=== PATIENT | female | born 1980 | race Caucasian/White ===

== ENCOUNTER 2019-02-19 09:44 | Emergency (ER) | payer SELFPAY ==
[2019-02-19 09:51] VITALS: BP 119/55
[2019-02-19] MEDS ORDERED: KETOROLAC TROMETHAMINE INJ/PF 30 MG/1 ML SDV IV ONE (10:09)
[2019-02-19] MEDS ORDERED: NORMAL SALINE 1000 ML 1,000 ML IV ONE (10:09)
[2019-02-19] MEDS ORDERED: ONDANSETRON HCL INJ/PF 4 MG/2 ML SDV IV ONE (10:09)
--- NOTE | 2019-02-19 10:10 | ER Document Report ---
ED Medical Screen (RME) - General Chief Complaint: Flank Pain Stated Complaint: FLANK FUNG Time Seen by Provider: 02/19/19 10:06 Primary Care Provider: SUSY HARO [Primary Care Provider] - Follow up as needed Mode of Arrival: Ambulatory Information source: Patient Notes: Patient is an otherwise healthy 39-year-old female presenting to the emergency department chief complaint of right-sided flank pain that has now radiated in her right groin. Patient also reports mild dysuria, chills and nausea and vomiting. Patient denies any history of kidney stones. Exam: Mild tenderness to palpation to the right flank area. I have greeted and performed a rapid initial assessment of this patient. A comprehensive ED assessment and evaluation of the patient, analysis of test results and completion of the medical decision making process will be conducted by additional ED providers. I have specifically instructed the patient or family members with the patient to immediately return to any nursing staff should anything change in the patient's condition or with their chief complaint. This medical record was dictated with voice recognizing software. There may be grammatical, syntax errors that are unintended. - Related Data Allergies/Adverse Reactions: No Known Allergies Allergy (Verified 09/04/12 09:11) Past Medical History Pulmonary Medical History: Denies: Hx Asthma, Hx Pneumonia - Immunizations Hx Diphtheria, Pertussis, Tetanus Vaccination: Yes - 04/29/12 Physical Exam - Vital signs Vitals: Temp Pulse Resp BP Pulse Ox 98.3 F 88 20 119/55 L 100 02/19/19 09:50 02/19/19 09:50 02/19/19 09:50 02/19/19 09:50 02/19/19 09:50 Course - Vital Signs Vital signs: Temp Pulse Resp BP Pulse Ox 98.3 F 88 20 119/55 L 100 02/19/19 09:50 02/19/19 09:50 02/19/19 09:50 02/19/19 09:50 02/19/19 09:50 Doctor's Discharge - Discharge Referrals: SUSY HARO [Primary Care Provider] - Follow up as needed
[2019-02-19 10:38] LABS: APPEARANCE,URINE CLEAR; BILIRUBIN,URINE NEGATIVE (NEGATIVE); COLOR,URINE YELLOW; GLUCOSE, URINE NEGATIVE (NEGATIVE); KETONES,URINE NEGATIVE (NEGATIVE); LEUKOCYTE ESTERASE,URINE MODERATE (NEGATIVE); NITRITE,URINE NEGATIVE (NEGATIVE); PROTEIN,URINE NEGATIVE (NEGATIVE); URINE SPECIFIC GRAVITY 1.008; UROBILINOGEN,URINE NEGATIVE mg/dL (<2.0)
[2019-02-19 10:41] LABS: HEMATOCRIT 40.4 % (36.0-47.0); HEMOGLOBIN 13.7 g/dL (12.0-15.5); MEAN CORPUSCULAR HEMOGLOBIN 31.3 pg (27.0-33.4); MEAN CORPUSCULAR VOLUME 92 fl (80-97); PLATELET COUNT 358 10^3/uL (150-450); RED BLOOD COUNT 4.39 10^6/uL (3.72-5.28); RED CELL DISTRIBUTION WIDTH 12.6 % (11.5-14.0); WHITE BLOOD COUNT 28.1 10^3/uL (4.0-10.5)
[2019-02-19 10:49] LABS: ALBUMIN 4.3 g/dL (3.5-5.0); ALKALINE PHOSPHATASE 77 U/L (38-126); ANION GAP 13 (5-19); ASPARTATE AMINO TRANSFERASE 36 U/L (14-36); BILIRUBIN,DIRECT 0.3 mg/dL (0.0-0.4); BILIRUBIN,TOTAL 1.4 mg/dL (0.2-1.3); BLOOD UREA NITROGEN 15 mg/dL (7-20); CALCIUM 9.2 mg/dL (8.4-10.2); CARBON DIOXIDE 26 mmol/L (22-30); CHLORIDE 95 mmol/L (98-107); GLUCOSE 131 mg/dL (75-110); POTASSIUM 4.4 mmol/L (3.6-5.0); TOTAL PROTEIN 7.2 g/dL (6.3-8.2)
[2019-02-19] MEDS ORDERED: CEFTRIAXONE 1 GM/D5W RTU 1 GM/50 ML RTUPB IV ONE (11:12)
[2019-02-19] MEDS ORDERED: MORPHINE SULFATE 10 MG/ML INJ IV ONE (11:20)
--- NOTE | 2019-02-19 11:24 | ER Document Report ---
ED General - General Chief Complaint: Flank Pain Stated Complaint: FLANK FUNG Time Seen by Provider: 02/19/19 10:06 Primary Care Provider: SUSY HARO [NO LOCAL MD] - Follow up as needed Mode of Arrival: Ambulatory TRAVEL OUTSIDE OF THE [place] IN LAST 30 DAYS: No - HPI Notes: Patient is a 39 year old female who presents to the ER for evaluation of right sided flank pain. She describes it as "jabbing." She rates it as a 7/10. It is constant, nothing seems to make it better it worse. She had multiple episodes of nonbloody, nonbilious emesis yesterday. Some urinary frequency. No gross hematuria. Some chills but no fever. - Related Data Allergies/Adverse Reactions: No Known Allergies Allergy (Verified 09/04/12 09:11) Home Medications: Tylenol prn Past Medical History - General Information source: Patient - Social History Smoking Status: Never Smoker Chew tobacco use (# tins/day): No Frequency of alcohol use: None Drug Abuse: None Family History: Reviewed & Not Pertinent Patient has suicidal ideation: No Patient has homicidal ideation: No - Medical History Medical History: Negative Pulmonary Medical History: Denies: Hx Asthma, Hx Pneumonia Renal/ Medical History: Denies: Hx Peritoneal Dialysis - Immunizations Hx Diphtheria, Pertussis, Tetanus Vaccination: Yes - 04/29/12 Review of Systems - Review of Systems Constitutional: See HPI EENT: No symptoms reported Cardiovascular: No symptoms reported Respiratory: No symptoms reported Gastrointestinal: See HPI Genitourinary: See HPI Musculoskeletal: No symptoms reported Skin: No symptoms reported Neurological/Psychological: No symptoms reported Physical Exam - Vital signs Vitals: Temp Pulse Resp BP Pulse Ox 98.3 F 88 20 119/55 L 100 02/19/19 09:50 02/19/19 09:50 02/19/19 09:50 02/19/19 09:50 02/19/19 09:50 Course - Re-evaluation Re-evalutation: 02/19/19 11:54 Patient presents emergency department for evaluation. This is a 39-year-old female with right sided flank pain, urinary symptoms. Her laboratory vesication reveal significant leukocytosis. She has a large amount of white blood cells in her urine. Her findings are most consistent with pyelonephritis. Despite her leukocytosis, this is a young and healthy female without any other major medical conditions. I do suspect it is reasonable for this patient to be treated as an outpatient. We will send her home with nausea medication as well as Bactrim for 2 weeks. Will give referral onto [facility] as she has no medical insurance. She is told if she has fever longer than 24 hours, vomiting which can keep down the antibiotics, or any other new or concerning symptoms, she needs to return immediately to the emergency department for evaluation. 02/19/19 11:58 - Vital Signs Vital signs: Temp Pulse Resp BP Pulse Ox 98.3 F 88 20 119/55 L 100 02/19/19 09:50 02/19/19 09:50 02/19/19 09:50 02/19/19 09:50 02/19/19 09:50 - Laboratory Result Diagrams: 02/19/19 10:12 02/19/19 10:12 Laboratory results interpreted by me: 02/19/19 02/19/19 02/19/19 10:12 10:12 10:20 WBC 28.1 H Seg Neuts % (Manual) 90 H Band Neutrophils % 2 L Lymphocytes % (Manual) 5 L Abs Neuts (Manual) 25.9 H Sodium 133.7 L Chloride 95 L Est GFR ( Amer) 59 L Est GFR (Non-Af Amer) 49 L Glucose 131 H Total Bilirubin 1.4 H Urine Blood SMALL H Ur Leukocyte Esterase MODERATE H Discharge - Discharge Clinical Impression: Pyelonephritis Condition: Stable Disposition: HOME, SELF-CARE Instructions: Acetaminophen, Antinausea Medication ([facility]), Rocephin ([facility]), Antibiotic Therapy ([facility]), Trimethoprim-Sulfa ([facility]) Referrals: LOCALMD,NO [NO LOCAL MD] - Follow up as needed
[2019-02-19 11:25] LABS: ABSOLUTE LYMPHOCYTES# (MANUAL) 1.4 10^3/uL (0.5-4.7); ABSOLUTE MONOCYTES # (MANUAL) 0.8 10^3/uL (0.1-1.4); BAND NEUTROPHILS % (MANUAL) 2 % (3-5); BASOPHILS % (MANUAL) 0 % (0-2); EOSINOPHILS % (MANUAL) 0 % (0-6); LYMPHOCYTES % (MANUAL) 5 % (13-45); MONOCYTES % (MANUAL) 3 % (3-13); SEGMENTED NEUTROPHILS % (MAN) 90 % (42-78); TOTAL CELLS COUNTED 100
[2019-02-19 11:26] LABS: PLATELET COMMENT ADEQUATE; RBC MORPHOLOGY COMMENT NORMO-CYTIC/CHROMIC; TOXIC GRANULATION 1+; TOXIC VACUOLATION PRESENT
== END 2019-02-19 12:12 | disposition home or self-care (01) ==
LOC: ER 09:44
DX: N12 Tubulo-interstitial nephritis, not specified as acute or chronic (principal); R10.9 Unspecified abdominal pain
CPT/HCPCS: 36415; 87086; 84703; 85025; 87088; 80053; 81001; J1885; J2270; J2405; J7030; J0696; 87186; 96361; 96365; 96375; 99284

== ENCOUNTER 2019-03-19 20:34 | Emergency (ER) | payer SELFPAY ==
[2019-03-19 21:16] VITALS: BP 125/69
[2019-03-19 23:02] LABS: APPEARANCE,URINE CLOUDY; BILIRUBIN,URINE NEGATIVE (NEGATIVE); COLOR,URINE COLORLESS; GLUCOSE, URINE NEGATIVE (NEGATIVE); KETONES,URINE NEGATIVE (NEGATIVE); URINE SPECIFIC GRAVITY 1.002
[2019-03-19 23:03] LABS: LEUKOCYTE ESTERASE,URINE LARGE (NEGATIVE); NITRITE,URINE NEGATIVE (NEGATIVE); PROTEIN,URINE 100 mg/dL (NEGATIVE); UROBILINOGEN,URINE NEGATIVE mg/dL (<2.0)
[2019-03-20] MEDS ORDERED: CEPHALEXIN 500 MG CAPSULE PO ONE (00:34)
[2019-03-20] MEDS ORDERED: PROMETHAZINE HCL 25 MG TABLET PO ONE (00:34)
[2019-03-20] MEDS ORDERED: PHENAZOPYRIDINE HCL 200 MG TABLET PO ONE (00:34)
[2019-03-20 01:08] LABS: T.VAGINALIS (WET MOUNT) NO TRICHOMONAS SEEN; WBCS (WET MOUNT) FEW WBCS SEEN; YEAST (WET MOUNT) NO YEAST SEEN
--- NOTE | 2019-03-20 01:21 | ER Document Report ---
ED General - General Chief Complaint: Flank Pain Stated Complaint: POSSIBLE UTI Time Seen by Provider: 03/19/19 23:54 Primary Care Provider: SHANEL MACIAS MD [NO LOCAL MD] - Follow up as needed Notes: Patient is a 39-year-old female presents to the emergency department for dysuria. Patient states she started with dysuria approximately 24 hours ago. Patient states she noticed some generalized pain in her right flank this evening and one episode of vomiting which is why she presents to the emergency department. Patient states she was seen at this facility approximately 1 month ago diagnosed with the urinary tract infection, treated with antibiotics and that that infection resolved. States she also complains of white vaginal discharge. Patient's denying any fevers. She is denying any abdominal pain at this time. TRAVEL OUTSIDE OF THE [place] IN LAST 30 DAYS: No - Related Data Allergies/Adverse Reactions: No Known Allergies Allergy (Verified 03/19/19 20:38) Past Medical History - General Information source: Patient - Social History Smoking Status: Unknown if Ever Smoked Family History: Reviewed & Not Pertinent Patient has suicidal ideation: No Patient has homicidal ideation: No Pulmonary Medical History: Denies: Hx Asthma, Hx Pneumonia Renal/ Medical History: Denies: Hx Peritoneal Dialysis - Immunizations Hx Diphtheria, Pertussis, Tetanus Vaccination: Yes - 04/29/12 Review of Systems - Review of Systems Constitutional: denies: Fever EENT: No symptoms reported Cardiovascular: No symptoms reported Respiratory: No symptoms reported Gastrointestinal: See HPI Genitourinary: See HPI Female Genitourinary: See HPI Musculoskeletal: See HPI Skin: No symptoms reported Hematologic/Lymphatic: No symptoms reported Neurological/Psychological: No symptoms reported Physical Exam - Vital signs Vitals: Temp Pulse Resp BP Pulse Ox 98.6 F 69 16 125/69 99 03/19/19 21:14 03/19/19 21:14 03/19/19 21:14 03/19/19 21:14 03/19/19 21:14 - Notes Notes: GENERAL: Alert, interacts well. No acute distress. HEAD: Normocephalic, atraumatic. EYES: Pupils equal, round, and reactive to light. Extraocular movements intact. ENT: Oral mucosa moist, tongue midline. NECK: Full range of motion. Supple. Trachea midline. LUNGS: Clear to auscultation bilaterally, no wheezes, rales, or rhonchi. No respiratory distress. HEART: Regular rate and rhythm. No murmur ABDOMEN: Soft, non-tender. Non-distended. Bowel sounds present in all 4 quadrants. EXTREMITIES: Moves all 4 extremities spontaneously. No edema, normal radial and dorsalis pedis pulses bilaterally. No cyanosis. BACK: no cervical, thoracic, lumbar midline tenderness. No saddle anesthesia, normal distal neurovascular exam. Slight CVA tenderness noted bilaterally. NEUROLOGICAL: Alert and oriented x3. Normal speech. cranial nerves II through XII grossly intact. PSYCH: Normal affect, normal mood. SKIN: Warm, dry, normal turgor. No rashes or lesions noted. Course - Re-evaluation Re-evalutation: Pelvic performed, manager foreign Emely PCT. No obvious discharge noted in the cul-de-sac, no cervical motion tenderness, no adnexal tenderness noted bilaterally. Patient wishes to decline prophylactic gonorrhea and Chlamydia testing in the emergency department. Discussed with her following up with medical records for culture results. Patient's urine does show signs of infection, sent for culture. Patient's last culture did grow E. coli, treated appropriately. Discussed following up with primary care provider and inevitably urology for recurrent urinary tract infections. At this time will discharge with return precautions and follow-up recommendations. Verbal discharge instructions given a the bedside and opportunity for questions given. Medication warnings reviewed. Patient is in agreement with this plan and has verbalized understanding of return precautions and the need for primary care follow-up in the next 24-72 hours. This medical record was dictated with voice recognizing software. There may be grammatical, syntax errors that are unintended. - Vital Signs Vital signs: Temp Pulse Resp BP Pulse Ox 98.6 F 69 16 125/69 99 03/19/19 21:14 03/19/19 21:14 03/19/19 21:14 03/19/19 21:14 03/19/19 21:14 - Laboratory Laboratory results interpreted by ky: 03/19/19 22:42 Urine Protein 100 H Urine Blood MODERATE H Ur Leukocyte Esterase LARGE H Discharge - Discharge Clinical Impression: Urinary tract infection Qualifiers: Urinary tract infection type: acute cystitis Hematuria presence: without hematuria Qualified Code(s): N30.00 - Acute cystitis without hematuria Condition: Stable Disposition: HOME, SELF-CARE Instructions: Cephalexin ([facility]), Urinary Anesthetic Agent ([facility]), Urinary Tract Infection ([facility]) Additional Instructions: As we discussed you have been seen and treated in the emergency department for a urinary tract infection. Please make sure you take antibiotics as prescribed. Please also make sure he follow-up with primary care provider in the next 24 to 48 hours. Return to the emergency room for any further concerns. Prescriptions: Cephalexin Monohydrate [Keflex 500 mg Capsule] 500 mg PO BID 7 Days #14 capsule Promethazine HCl [Phenergan 25 mg Tablet] 1 tab PO Q6H PRN #8 tablet PRN Reason: Phenazopyridine HCl [Pyridium] 200 mg PO TID 2 Days tablet Referrals: SHANEL MACIAS MD [NO LOCAL MD] - Follow up as needed
[2019-03-20 02:33] LABS: CHLAM PCR NOT DETECTED (NOT DETECT)
== END 2019-03-20 01:33 | disposition home or self-care (01) ==
LOC: ER 20:34
DX: N30.00 Acute cystitis without hematuria (principal); N89.8 Other specified noninflammatory disorders of vagina; R10.9 Unspecified abdominal pain; R30.0 Dysuria
CPT/HCPCS: 87086; 87210; 81025; 81001; 87491; 87591; J3490; 99283

== ENCOUNTER 2019-03-30 01:07 | Emergency (ER) | payer SELFPAY ==
[2019-03-30] MEDS ORDERED: ONDANSETRON HCL INJ/PF 4 MG/2 ML SDV IV ONE (01:46)
[2019-03-30] MEDS ORDERED: MORPHINE SULFATE 10 MG/ML INJ IV ONE (01:46)
[2019-03-30] MEDS ORDERED: NORMAL SALINE 1000 ML 1,000 ML IV ONE (01:46)
--- NOTE | 2019-03-30 01:51 | ER Document Report ---
ED GI/ - General Chief Complaint: Flank Pain Stated Complaint: FLANK PAIN Time Seen by Provider: 03/30/19 01:40 Notes: Patient is a 39-year-old female that comes to the emergency department for chief complaint of sudden onset right flank pain rating around to the right side of the abdomen. She denies vomiting but she does report some dysuria. She states that 1.5 weeks ago she was treated for UTI with Keflex, symptoms resolved, but then dysuria has come back over the past day or so. She denies history of kidney stones. She denies fever/chills. She denies any surgeries or daily medications. LMP was the beginning of February but she states she is not sexually active so she does not believe she is. She denies vaginal bleeding or dis charge. TRAVEL OUTSIDE OF THE [place] IN LAST 30 DAYS: No - Related Data Allergies/Adverse Reactions: No Known Allergies Allergy (Verified 03/19/19 20:38) Past Medical History - General Information source: Patient - Social History Smoking Status: Never Smoker Chew tobacco use (# tins/day): No Frequency of alcohol use: None Drug Abuse: None Lives with: Family Family History: Reviewed & Not Pertinent Patient has suicidal ideation: No Patient has homicidal ideation: No Pulmonary Medical History: Denies: Hx Asthma, Hx Pneumonia Renal/ Medical History: Denies: Hx Peritoneal Dialysis Surgical Hx: Negative - Immunizations Hx Diphtheria, Pertussis, Tetanus Vaccination: Yes - 04/29/12 Review of Systems - Review of Systems Constitutional: No symptoms reported EENT: No symptoms reported Cardiovascular: No symptoms reported Respiratory: No symptoms reported Gastrointestinal: See HPI Genitourinary: See HPI Female Genitourinary: No symptoms reported Musculoskeletal: No symptoms reported Skin: No symptoms reported Hematologic/Lymphatic: No symptoms reported Neurological/Psychological: No symptoms reported Physical Exam - Vital signs Vitals: Temp Pulse Resp BP Pulse Ox 98.0 F 89 16 118/75 100 03/30/19 01:21 03/30/19 01:21 03/30/19 01:21 03/30/19 01:03/30/19 01:21 - Notes Notes: GENERAL: Patient appears mildly uncomfortable but she is not in severe distress. HEAD: Normocephalic, atraumatic. EYES: Pupils equal, round, and reactive to light. Extraocular movements intact. ENT: Oral mucosa moist, tongue midline. Oropharynx unremarkable. Airway patent. Nares patent, no nasal septal hematoma, TM's intact. NECK: Full range of motion. Supple. Trachea midline. LUNGS: Clear to auscultation bilaterally, no wheezes, rales, or rhonchi. No respiratory distress. HEART: Regular rate and rhythm. No murmur ABDOMEN: Generalized right-sided abdominal tenderness without guarding or r igidity. Otherwise unremarkable. GENITOURINARY: Deferred EXTREMITIES: Moves all 4 extremities spontaneously. No edema, normal radial and dorsalis pedis pulses bilaterally. No cyanosis. BACK: Right-sided CVA tenderness, left unremarkable. No midline tenderness. No saddle anesthesia. NEUROLOGICAL: Alert and oriented x3. Normal speech. Cranial nerves II through XII grossly intact. PSYCH: Normal affect, normal mood. SKIN: Warm, dry, normal turgor. No rashes or lesions noted. Course - Re-evaluation Re-evalutation: Initially patient appears uncomfortable but she is not in severe distress. She does have right-sided CVA tenderness. She does have generalized right-sided abdominal tenderness without guarding or rigidity. Vital signs unremarkable including no fever. CBC shows leukocytosis of 14,000 with elevation of neutrophils but no bandemia. Chemistry unremarkable. test is negative. Urine does indicate infe ction with white blood cell clumps, white blood cells and red blood cells greater than 182. No bacteria noted. Yeast is noted. Given Diflucan. Given Rocephin. Culture placed. Because of patient's pain, unilateral presentation, recommended CAT scan to rule out obstructing ureterolithiasis, patient agrees. CT showing right-sided lower third 15 millimeters ureterolithiasis with moderate hydronephrosis and hydroureter. Discussed with Dr. Espinosa, I will discuss with urology. Called and spoke with [facility] urology Dr. Man. Because patient does not have a fever, vital signs unremarkable, and patient's pain is actually well controlled (patient states so she does not appear to be in any pain or distress now), he states with the location, age, gender of the patient, and size of the stone that he actually does not recommend stenting, he recommends lithotripsy. As result he recommends that she be seen in the office later today for this to be performed, states she can be treated with pain medication and Toradol with return precautions. I discussed this with patient at length, patient and state they will be seen later in the office today, provided with medications, discussed return precautions in detail again. They state understanding and agreement. Stable at time of discharge. - Vital Signs Vital signs: Temp Pulse Resp BP Pulse Ox 98.0 F 89 16 118/75 100 03/30/19 01:21 03/30/19 01:21 03/30/19 01:21 03/30/19 01:21 03/30/19 01:21 - Laboratory Result Diagrams: 03/30/19 02:00 03/30/19 02:00 Laboratory results interpreted by me: 03/30/19 03/30/19 03/30/19 02:00 02:00 02:00 WBC 14.2 H RBC 3.63 L Hgb 10.8 L Hct 32.0 L Plt Count 484 H Absolute Neuts (auto) 11.3 H Seg Neutrophils % 79.9 H Glucose 125 H Urine Protein 100 H Urine Blood SMALL H Ur Leukocyte Esterase MODERATE H Discharge - Discharge Clinical Impression: Ureterolithiasis, Flank pain UTI (urinary tract infection) Qualifiers: Urinary tract infection type: site unspecified Hematuria presence: with hematuria Qualified Code(s): N39.0 - Urinary tract infection, site not specified Abdominal pain Qualifiers: Abdominal location: lower abdomen, unspecified Qualified Code(s): R10.30 - Lower abdominal pain, unspecified Condition: Stable Disposition: HOME, SELF-CARE Additional Instructions: You have a 15 mm kidney stone in the lower right ureter (the tube between the kidney and your bladder). Take the antibiotics as prescribed, take the Toradol and Percocet if needed for pain, take Phenergan if needed for nausea. I spoke with Dr. Man, urologist at [facility], recommendation is to be seen in the office today, please call the number listed below in the morning and be seen in the office for additional management. You must be seen again immediately if you develop a fever, return also if you develop vomiting, worsening pain, or any other concerning or worsening symptoms. [facility] [place] [id number] [facility] [address] [place], [place] [id number] Prescriptions: Ketorolac Tromethamine [Toradol 10 mg Tablet] 10 mg PO Q8HP PRN #24 tablet PRN Reason: Amox Tr/Potassium Clavulanate [Augmentin 875-125 Tablet] 1 tab PO BID 7 Days tablet Oxycodone HCl/Acetaminophen [Percocet 5-325 mg Tablet] 1 - 2 tab PO TID PRN #15 tablet PRN Reason: Promethazine HCl [Phenergan 25 mg Tablet] 25 mg PO Q6H PRN #20 tablet PRN Reason: Forms: Return to Work
[2019-03-30 02:29] LABS: ABSOLUTE EOSINOPHILS # (AUTO) 0.1 10^3/uL (0.0-0.6); ABSOLUTE LYMPHOCYTES (AUTO) 1.9 10^3/uL (0.5-4.7); ABSOLUTE MONOCYTES (AUTO) 0.8 10^3/uL (0.1-1.4); ABSOLUTE NEUT (AUTO) 11.3 10^3/uL (1.7-8.2); BASOPHILS % (AUTO) 0.3 % (0-2); EOSINOPHILS % (AUTO) 0.5 % (0-6); HEMOGLOBIN 10.8 g/dL (12.0-15.5); LYMPHOCYTES % (AUTO) 13.7 % (13-45); MEAN CORPUSCULAR HEMOGLOBIN 29.6 pg (27.0-33.4); MEAN CORPUSCULAR HGB CONC 33.6 g/dL (32.0-36.0); MEAN CORPUSCULAR VOLUME 88 fl (80-97); MONOCYTES % (AUTO) 5.6 % (3-13); PLATELET COUNT 484 10^3/uL (150-450); RED BLOOD COUNT 3.63 10^6/uL (3.72-5.28); RED CELL DISTRIBUTION WIDTH 12.6 % (11.5-14.0); SEGMENTED NEUTROPHILS % (AUTO) 79.9 % (42-78); TOTAL CELLS COUNTED % (AUTO) 100 %; WHITE BLOOD COUNT 14.2 10^3/uL (4.0-10.5)
[2019-03-30 02:38] LABS: ALBUMIN 3.9 g/dL (3.5-5.0); ALKALINE PHOSPHATASE 76 U/L (38-126); ANION GAP 10 (5-19); ASPARTATE AMINO TRANSFERASE 16 U/L (14-36); BILIRUBIN,DIRECT 0.1 mg/dL (0.0-0.4); BILIRUBIN,TOTAL 0.6 mg/dL (0.2-1.3); BLOOD UREA NITROGEN 11 mg/dL (7-20); CALCIUM 9.4 mg/dL (8.4-10.2); CARBON DIOXIDE 27 mmol/L (22-30); CHLORIDE 101 mmol/L (98-107); GLUCOSE 125 mg/dL (75-110); POTASSIUM 3.7 mmol/L (3.6-5.0); TOTAL PROTEIN 7.2 g/dL (6.3-8.2)
[2019-03-30 02:49] LABS: APPEARANCE,URINE TURBID; BILIRUBIN,URINE NEGATIVE (NEGATIVE); COLOR,URINE YELLOW; GLUCOSE, URINE NEGATIVE (NEGATIVE); KETONES,URINE NEGATIVE (NEGATIVE); LEUKOCYTE ESTERASE,URINE MODERATE (NEGATIVE); NITRITE,URINE NEGATIVE (NEGATIVE); PROTEIN,URINE 100 mg/dL (NEGATIVE); URINE SPECIFIC GRAVITY 1.023; UROBILINOGEN,URINE NEGATIVE mg/dL (<2.0)
[2019-03-30] MEDS ORDERED: HYDROMORPHONE HCL INJ/PF 2 MG/ML AMPULE IV ONE (03:12)
[2019-03-30] MEDS ORDERED: CEFTRIAXONE 1 GM/D5W RTU 1 GM/50 ML RTUPB IV ONE (03:12)
[2019-03-30] MEDS ORDERED: KETOROLAC TROMETHAMINE INJ/PF 30 MG/1 ML SDV IV ONE (03:13)
--- NOTE | 2019-03-30 04:02 | RADIOLOGY REPORT (SQ) ---
CLINICAL HISTORY: sharp right flank pain. RECENT UIT, KEFLEX FINISHED 03/26. [facility] NEG COMPARISON: None. TECHNIQUE: CT ABDOMEN PELVIS WITHOUT IV CONTRAST on 03/30/2019 3:12 AM CDT This exam was performed according to our departmental dose-optimization program, which includes automated exposure control, adjustment of the mA and/or kV according to patient size and/or use of iterative reconstruction technique. FINDINGS: Lower lungs are clear. Abdomen: The liver is normal in appearance. There is no biliary dilatation. Gallbladder contains multiple gallstones. The pancreas and spleen are normal in appearance. Adrenal glands are normal. Left kidney is unremarkable. There is moderate right hydronephrosis and hydroureter. There is a 1.5 cm calculus in the lower third of the right ureter. Abdominal aorta is normal in course and caliber without aneurysm. There is no free air. There is no retroperitoneal adenopathy.There is a small fat-containing umbilical. Pelvis: There is no bowel obstruction. Urinary bladder is unremarkable. There is no free fluid. Uterus is normal in size. Appendix is not well seen. Skeleton: There are no acute osseous findings. No suspicious bony lesions. IMPRESSION: Obstructing 1.5 cm calculus within the lower third of the right ureter.
[2019-03-30] MEDS ORDERED: FLUCONAZOLE 100 MG TABLET PO ONE (04:29)
[2019-03-30] MEDS ORDERED: HYDROCODONE/ACETAMINOPHEN 5-325 MG (6 TAB/ER DISP) PO PRN (04:47)
[2019-03-30] MEDS ORDERED: ONDANSETRON ODT 4 MG TAB (6 TAB/ER DISP) PO PRN (04:47)
[2019-03-30 05:18] VITALS: BP 117/70
== END 2019-03-30 05:00 | disposition home or self-care (01) ==
LOC: ER 01:07
DX: N20.1 Calculus of ureter (principal); N39.0 Urinary tract infection, site not specified; R30.0 Dysuria; R10.30 Lower abdominal pain, unspecified
CPT/HCPCS: 99284; 96361; 96375; 96365; 96366; 36415; 87086; 83690; 85025; 81025; 80053; 81001; 74176; J1885; J2270; J1170; J2405; J7030; J0696

== ENCOUNTER → 2020-07-25 | Outpatient (CLI) | payer SELFPAY ==
[~2020-07-25] MED LIST: COVID-19 VACCINE (PFIZER)/PF 30 MCG/0.3 ML VIAL IM ONE; EPINEPHRINE INJ/PF 1 MG/1 ML AMPULE IM PRN
== END ==
LOC: EMPHEALTH 11:50
PROVIDERS: ATTEND Internal Medicine
DX: Z23 Encounter for immunization (principal)
CPT/HCPCS: 91300